=== PATIENT | male | born 1985 | race Caucasian/White ===

== ENCOUNTER → 2018-08-09 | Outpatient (CLI) | payer BC | LOC: ZCOL.LAB 16:30 | DX: J02.9 Acute pharyngitis, unspecified (principal); N50.89 Other specified disorders of the male genital organs ==

== ENCOUNTER → 2018-08-22 | Outpatient (CLI) | payer BC ==
[2018-08-22 17:14] LABS: CALCIUM 9.4 mg/dL (8.4-10.2); CREATININE, serum 0.79 mg/dL (0.66-1.25); POTASSIUM 4.6 mmol/L (3.4-5.0)
== END ==
LOC: ZCOL.LAB 16:13
PROVIDERS: Family Medicine
DX: I10 Essential (primary) hypertension (principal)